=== PATIENT | female | born 2000 | race Caucasian/White ===

== ENCOUNTER 2023-12-02 16:58 | Observation (INO) | payer OTHER, SELFPAY ==
[2023-12-02] VITALS (8 sets, daily range): BP systolic 100–114; BP diastolic 57–65; PULSE 96–102; TEMP 37.1–37.2; BMI 23.4
--- NOTE | 2023-12-02 16:58 | OBADM ---
This patient, Jose Alexandra, admitted to the OB room OB Post 115 for observation. Patient/family oriented to hospital policies and general routines including ID bracelet, bed and alarms, visiting hours, pain management, procedures, bathroom and other care routines, personal items, smoking policy, room service/diet, and visiting hours. Patient/Family are encouraged to report perceived risks to care and to ask questions if they do not understand what they are told or what they should do.
[2023-12-02 17:43] LABS: Add Urine Microscopic? YES; Appearance Urine Clear (Clear); Bacteria Urine Rare /hpf; Bilirubin Urine Negative (Negative); Blood Urine Negative (Negative); Color Urine Yellow (Yellow); Glucose Urine UA Negative (Negative); Ketones Urine 3+ mg/dL (Negative); Leukocyte Esterase Ur Negative LEU/UL (Negative); Nitrate Urine Negative (Negative); Non Pathogenic Casts 0-2; Protein Urine Trace mg/dL (Negative); RBC Urine 0-2 /hpf (0-2); Specific Grav Ur 1.031 (1.001-1.035); Squamous Epithelial Cell Urine Moderate /hpf (Few); WBC Urine 0-5 /hpf (0-3); pH Urine 5.5 (5.0-9.0)
[2023-12-02] MEDS: DEXTROSE 5%/LACTATED RINGERS 1,000 ML 999 ML IV CONT (17:49)
[2023-12-02] MEDS: FAMOTIDINE 20 MG/2 ML VIAL IV PUSH (17:49)
[2023-12-02] MEDS: ONDANSETRON INJ 4 MG/2 ML VIAL IV PUSH (17:49)
--- NOTE | 2023-12-02 18:39 | PC.NURSE ---
This RN doppled heart tones. heart rate ranged from 125-152.
--- NOTE | 2023-12-02 19:32 | PC.NURSE ---
Dr. Fady Vences notified that patient was able to keep the PO fluids down and kept down solids. MD updated on lab results. New orders received to discharge patient.
[2023-12-02] MEDS: ONDANSETRON HCL ODT 4 MG TABLET PO (19:40)
--- NOTE | 2023-12-02 19:57 | PC.NURSE ---
This RN discussed discharge with the patient, patient agrees. RN gave discharge instructions to the patient and patient verbalized understanding. IV discontinued at this time. Patient discharged undelivered and in stable condition.
--- NOTE | 2023-12-16 07:27 | PM.OBTRLD ---
OB - Triage/Final Diagnosis Visit Information Reason for evaluation: threatened labor Comments/Additional reasons for admission: I have assessed the risk for this patient, Jose Alexandra, and determined that she would benefit from observation care. Evaluation Laboratory results: Laboratory Tests 12/02/23 17:35 Urine Color Yellow Urine Appearance Clear Urine pH 5.5 Ur Specific [place] 1.031 Urine Protein Trace Urine Glucose (UA) Negative Urine Ketones 3+ H Ur Blood (Man) Negative Urine Nitrate Negative Urine Bilirubin Negative Urine Urobilinogen 1.0 Leukocyte Esterase Rfl Negative Urine RBC 0-2 Urine WBC 0-5 Ur Squamous Epith Cells Moderate Urine Bacteria Rare Urine Casts 0-2
== END 2023-12-02 20:05 | disposition home or self-care (01) ==
PROVIDERS: Admitting Provider Obstetrics & Gynecology; Visit Provider Obstetrics & Gynecology
DX: O47.02 False labor before 37 completed weeks of gestation, second trimester (principal); Z3A.21 21 weeks gestation of pregnancy
CPT/HCPCS: 81001; 96374; 96375; A9270; G0378; G0379; J2405; J7121

== ENCOUNTER 2023-12-04 08:20 | Outpatient (CLI) | payer OTHER, SELFPAY ==
[2023-12-04 08:59] LABS: OBXCEM ROM Plus Negative (Negative)
--- NOTE | 2023-12-04 09:10 | PC.NURSE ---
Dr. Fady Vences was also informed pt had 1 contraction during the 25 mins the toco transducer was on.
--- NOTE | 2023-12-04 09:10 | PC.NURSE ---
Dr. Fady Vences returned page and informed of this 22 wk pt's c/o leakage of fluid at 0720 this am. ROM plus was negative. No leakage of fluid since. FHT's 136. Pt was c/o back pain and cramping Friday when she was here for Nausea, vomiting, and diarrhea and has felt like she has been feeling movement in her vagina since Friday evening. Pt states she has a low lying placenta but isn't on pelvic rest. OK to do SVE and discharge to home if cervix is closed.
--- NOTE | 2023-12-04 09:16 | PC.NURSE ---
SVE is closed, thick, and firm.
== END 2023-12-04 09:21 | disposition home or self-care (01) ==
LOC: ANHOBOP 08:26 → ANHOBPP 08:27
PROVIDERS: Visit Provider Obstetrics & Gynecology
DX: O42.90 Premature rupture of membranes, unspecified as to length of time between rupture and onset of labor, unspecified weeks of gestation (principal); Z3A.00 Weeks of gestation of pregnancy not specified
CPT/HCPCS: 84112; 99199

== ENCOUNTER 2024-01-28 21:51 | Observation (INO) | payer OTHER, SELFPAY ==
[2024-01-28] VITALS (26 sets, daily range): BP systolic 113–123; BP diastolic 57–74; PULSE 84–117; TEMP 37; O2SAT 99–100
[2024-01-28 22:37] LABS: Add Urine Microscopic? YES; Appearance Urine Cloudy (Clear); Bacteria Urine None Seen /hpf; Bilirubin Urine Negative (Negative); Blood Urine Negative (Negative); Color Urine Yellow (Yellow); Glucose Urine UA Trace mg/dL (Negative); Ketones Urine Negative (Negative); Leukocyte Esterase Ur Negative LEU/UL (Negative); Nitrate Urine Negative (Negative); Non Pathogenic Casts 0-2; Protein Urine Negative (Negative); RBC Urine 0-2 /hpf (0-2); Specific Grav Ur 1.006 (1.001-1.035); Squamous Epithelial Cell Urine None Seen /hpf (Few); Urobilinogen Urine 0.2 mg/dL (<2.0); WBC Urine 0-5 /hpf (0-3); pH Urine 6.5 (5.0-9.0)
[2024-01-28 23:32] LABS: Fetal Fibronectin Negative
[2024-01-29] VITALS (34 sets, daily range): BP systolic 97–115; BP diastolic 49–63; PULSE 73–109; O2SAT 77–100
[2024-01-29] MEDS: NIFEdipine 10 MG CAPSULE PO (00:09)
[2024-01-29] MEDS: LACTATED RINGERS 1,000 ML 999 ML IV CONT (00:28)
--- NOTE | 2024-01-29 02:48 | P.PNOB_ITS ---
OB - Triage/Final Diagnosis Visit Information Date of evaluation: 01/29/24 Reason for evaluation: threatened labor Comments/Additional reasons for admission: I have assessed the risk for this patient, Jose Alexandra, and determined that she would benefit from observation care. Evaluation Laboratory results: Laboratory Tests 01/28/24 01/28/24 22:23 22:39 Urine Color Yellow Urine Appearance Cloudy H Urine pH 6.5 Ur Specific [place] 1.006 Urine Protein Negative Urine Glucose (UA) Trace H Urine Ketones Negative Ur Blood (Man) Negative Urine Nitrate Negative Urine Bilirubin Negative Urine Urobilinogen 0.2 Leukocyte Esterase Rfl Negative Urine RBC 0-2 Urine WBC 0-5 Ur Squamous Epith Cells None seen Urine Bacteria None seen Urine Casts 0-2 Fibronectin Negative Vital signs: Vital Signs - 24 hr 01/28/24 22:12 01/28/24 22:13 01/28/24 22:17 Pulse Rate Blood Pressure Pulse Oximetry 100 100 Oxygen Delivery Room Air 01/28/24 22:19 01/28/24 22:22 01/28/24 22:27 Pulse Rate 114 H Blood Pressure 121/74 Pulse Oximetry 99 99 Oxygen Delivery 01/28/24 22:31 01/28/24 22:32 01/28/24 22:37 Pulse Rate 106 H Blood Pressure 123/70 Pulse Oximetry 100 100 Oxygen Delivery 01/28/24 22:42 01/28/24 22:47 01/28/24 22:52 Pulse Rate Blood Pressure Pulse Oximetry 100 100 100 Oxygen Delivery 01/28/24 22:57 01/28/24 23:01 01/28/24 23:02 Pulse Rate 99 Blood Pressure 113/65 Pulse Oximetry 100 100 Oxygen Delivery 01/28/24 23:07 01/28/24 23:12 01/28/24 23:17 Pulse Rate Blood Pressure Pulse Oximetry 100 100 100 Oxygen Delivery 01/28/24 23:22 01/28/24 23:27 01/28/24 23:31 Pulse Rate 99 Blood Pressure 117/57 L Pulse Oximetry 100 100 Oxygen Delivery 01/28/24 23:32 01/28/24 23:37 01/28/24 23:42 Pulse Rate Blood Pressure Pulse Oximetry 100 100 100 Oxygen Delivery 01/28/24 23:47 01/28/24 23:52 01/28/24 23:57 Pulse Rate Blood Pressure Pulse Oximetry 100 100 100 Oxygen Delivery 01/29/24 00:01 01/29/24 00:02 01/29/24 00:08 Pulse Rate 87 Blood Pressure 115/63 Pulse Oximetry 100 100 Oxygen Delivery 01/29/24 00:13 01/29/24 00:23 01/29/24 00:28 Pulse Rate Blood Pressure Pulse Oximetry 77 L 99 100 Oxygen Delivery 01/29/24 00:33 01/29/24 00:38 01/29/24 00:43 Pulse Rate Blood Pressure Pulse Oximetry 99 100 100 Oxygen Delivery 01/29/24 00:48 01/29/24 00:53 01/29/24 00:58 Pulse Rate Blood Pressure Pulse Oximetry 100 99 100 Oxygen Delivery 01/29/24 01:01 01/29/24 01:03 01/29/24 01:08 Pulse Rate 86 Blood Pressure 97/52 L Pulse Oximetry 98 100 Oxygen Delivery 01/29/24 01:13 01/29/24 01:18 01/29/24 01:23 Pulse Rate Blood Pressure Pulse Oximetry 99 99 99 Oxygen Delivery 01/29/24 01:28 01/29/24 01:33 01/29/24 01:38 Pulse Rate Blood Pressure Pulse Oximetry 99 99 99 Oxygen Delivery 01/29/24 01:43 01/29/24 01:48 01/29/24 01:53 Pulse Rate Blood Pressure Pulse Oximetry 99 99 99 Oxygen Delivery 01/29/24 01:58 01/29/24 02:01 01/29/24 02:03 Pulse Rate 89 Blood Pressure 98/49 L Pulse Oximetry 100 100 Oxygen Delivery 01/29/24 02:05 01/29/24 02:10 01/29/24 02:15 Pulse Rate Blood Pressure Pulse Oximetry 100 100 100 Oxygen Delivery 01/29/24 02:20 01/29/24 02:21 01/29/24 02:26 Pulse Rate Blood Pressure Pulse Oximetry 100 100 100 Oxygen Delivery 01/29/24 02:29 01/29/24 02:29 Pulse Rate Blood Pressure Pulse Oximetry 100 98 Oxygen Delivery
--- NOTE | 2024-01-29 03:20 | PC.NURSE ---
Pt discharged with instructions to keep next scheduled appointment and when to return to the unit, pt verbalizes understanding.
== END 2024-01-29 03:20 | disposition home or self-care (01) ==
PROVIDERS: Admitting Provider Obstetrics & Gynecology; Visit Provider Obstetrics & Gynecology
DX: O47.03 False labor before 37 completed weeks of gestation, third trimester (principal); Z3A.30 30 weeks gestation of pregnancy
CPT/HCPCS: 81001; 82731; 96360; 96361; 96372; A9270; G0378; G0379; J7120

== ENCOUNTER 2024-03-06 23:50 | Inpatient (IN) | payer OTHER, SELFPAY ==
--- OUTSIDE RECORDS SUMMARY | 2024-03-06 23:56 | XMS_ITS | Clinical Summary ---
Author Organization [facility] Address [address] [place] [address] Phone Care Team Providers Care Die Attaching Machine Tender Name Role Phone Parag Gold MD Primary Care Provider Allergies No known active allergies Medications No known medications Active Problems No known active problems Social History Tobacco Use Types Packs/Day Years Used Date Smoking Tobacco: Never Smokeless Tobacco: Never Tobacco Cessation:Counseling Given: Not Answered Alcohol Use Standard Drinks/Week Comments Not Currently 0 (1 standard drink = 0.6 oz pur e alcohol) Comments No Sex and Gender Information Value Date Recorded Sex Assigned at Not on file Legal Sex Female 8:56 PM CDT Gender Identity Not on file Sexual Orientation Not on file Last Filed Vital Signs Vital Sign Reading Time Taken Comments Blood Pressure 114/62 07/26/2022 8:40 AM CDT Pulse 83 07/26/2022 8:40 AM CDT Temperature 36.8 ??C (98.2 ??F) 07/26/2022 8:40 AM CD T Respiratory Rate 16 07/26/2022 8:40 AM CDT Oxygen Saturation 100% 07/26/2022 8:40 AM CDT Inhaled Oxygen Concentration - - Weight 47.6 kg (105 lb) 05/13/2020 10:15 AM CDT Height - - Body Mass Index - - Plan of Treatment Health Maintenance Due Date Last Done Comments Hepatitis C Virus (HCV) Screening 2002 Hepatitis B Immunization (3 of 3 - 3-dose series) 2002 2002, 2002 Human Papillomavirus (HPV) Immunization (1 - 3-dose series) 2017 Meningococcal B Immunization (1 of 2 - Standard) 2018 Pap Smear 05/10/2023 Influenza Immunization (#1) 10/12/202301/10, 11/25/2019, 11/23/2018 SARS-COV-2 Immunization ( season) 2023 Respiratory Syncytial Virus (RSV) Immunization (Adult) (1 - 1-dose 75+ series) 2077 Pneumococcal Immunization Combined Aged Out 2002, 2002 No longer eligible based on patient's age to complete this topic Polio (IPV) Immunization Discontinued 003, 2002 Meningococcal Immunization (ACWY) Completed 11/25/2019 DTaP/Tdap/Td Immunization Discontinued 2021, 2002, 2002 TdaP Immunization Completed 01/20/2022 Rotavirus Immunization Aged Out No lo nger eligible based on patient's age to complete this topic Insurance MEDICAID [place] Care Teams Die Attaching Machine Tender Relationship Specialty Start Date End Date Parag Gold MD [address] [place] [address] PCP - General Pediatrics 12/31/19
--- OUTSIDE RECORDS SUMMARY | 2024-03-06 23:56 | XMS_ITS | Clinical Summary ---
Author Organization [facility] [employer] Address [address] [email or web address] [address] Phone Care Team Providers Care Vice Principal Name Role Phone Parag Gold MD Primary Care Provider [phone] Allergies No known active allergies Medications albuterol (PROVENTIL,PATEL MARY) 0.4 mg/mL syrupIndications :Bronchospastic Pulmonary Disease Take 7.5 mL (3 mg total) by mouth 3 (three) times a day 675 mL 11/23/2018 Active ferrous sulfate 325 mg (65 mg of elemental iron) tablet Take 1 tablet by mouth 2 (two) times a day 11/15/2021 Active vit-iron fum-folic ( Vitamin) 27 mg iron- 800 mcg tablet Take 1 tablet by mouth daily 07/04/2021 Active ibuprofen (ADVIL,MOTRIN) 200 mg tab/capIndicatio ns:Cramps Take 2 tabs orally every 4 hours as needed for pain. 01/19/2022 Active acetaminophen (TYLENOL) 500 mg tablet Take one tab orally every 4 hours as needed for pain. 01/19/2022 Active Active Problems Problem Noted Date Diagnosed Date 37 weeks gestation of 01/18/2022 Impetigo 08/19/2019 Pneumonia due to infectious organism 11/30/2018 Viral upper respiratory tract infection 11/24/19 19 Bronchospasm 11/23/2018 Frequency of urination and polyuria 01/10/2017 Slow transit constipation 01/10/2017 History of self-harm 09/13/2016 Overview (09/13/2016): 09/25-01/25 [place] prozac 10mg bullying she began cutting, wrote note about plans to kill self with overdosing on pills - counseling. 8-17 done with counseling doing well stopped prozac Reactive depression 09/13/2016 Overview (09/13/2016): [place] Prozac, counseling bullying 09-13-16 done with counseling doing well stopped prozac Encounters for administrative purposes 5 Overview (05/23/2016): Sports physical Medical examinations/reports status 06/17/2012 Overview (05/23/2016): Health care maintenance Acute streptococcal pharyngitis 06/17/2012 Overview (05/23/2016): Strep pharyngitis Immunizations Name Administration Dates Next Due DTaP 09/04/2007,2002 DTaP / HiB / IPV 08/10/2003,2002, 3 HPV, Quadrivalent 11/11/2013,09/08/2013 HPV9 09/13/2016 Hep B, Adolescent or Pediatric 2002,2002,2002 Hib (PRP-OMP) 2002 IPV 09/04/2007 Influenza, Quadrivalent, Spl it, Preservative Free, Intramuscular 01/20/2022,11/25/2019,11/23/2018 Influenza, Split 11/26/2012 Influenza, Trivalent, IM (MDV) 11/29/2013,2011 MMR 09/04/2007,05/11/2003 Meningococcal Conjugate (Menveo) 11/25/2019 Meningococcal MCV4P (Menactra) 09/08/2013 Pneumococcal Conjugate PCV 13 11/10/2003 ,2002,2002,07/16 Tdap 01/20/2022,09/08/2013 Varicella 09/04/2007,05/11/2003 Surgical History Surgery Date Site/Laterality Comments TONSILLECTOMY Medical History Medical History Date Comments Hx Other Medical 2011 Tonsillectomy & adenoidectomy Hx Other Medical Depression Social History Tobacco Use Types Packs/Day Years Used Date Smoking Tobacco: Former Vaping Q uit: 05/11/2021 Smokeless Tobacco: Never Tobacco Cessation:Counseling Given: Not Answered Alcohol Use Standard Drinks/Week Comments Never 0 (1 standard drink = 0.6 oz pur e alcohol) Social Connection and Isolation Panel [NHANES] A nswer Date Recorded In a typical week, how many times do you talk on the phone with family, friends, or neighbors? Three times a week 01/19/20 How often do you get togethe r with friends or relatives? Three times a week 01/18/2022 How often do you attend chur ch or advent services? Never 01/18/2022 Do you belong to any clubs o r organizations such as mosque groups, unions, fraternal or athletic groups, or school groups? No 01/18/2022 How often do you attend meet ings of the clubs or organizations you belong to? Never 01/18/2022 Are you , , di vorced, , never , or living with a partner? Living with partner 01/18/2022 AUDIT-C Answer Date Recorded Q1: How often do you have a drink containing alcohol? Never 01/18/2022 Q2: How many drinks containi ng alcohol do you have on a typical day when you are drinking? Patient does not drink Q3: How often do you have si x or more drinks on one occasion? Never 01/18/2022 Overall Financial Resource Strain (CARDIA) Answe r Date Recorded How hard is it for you to pa y for the very basics like food, housing, medical care, and heating? Not hard at all 01/18/2022 PHQ-2 Answer Date Recorded PHQ-2 Total Score (If total score is 3 or more points, staff should administer the PHQ-9) 0 01/18/2022 [facility] - Occupational Stress Questionnaire Answer Date Recorded Do you feel stress - tense, restless, nervous, or anxious, or unable to sleep at night because your mind is troubled all the time - these days? Not at all 01/18/2022 Exercise Vital Sign Answer Date Recorde d On average, how many days pe r week do you engage in moderate to strenuous exercise (like a brisk walk)? 2 days 01/18/2022 On average, how many minutes do you engage in exercise at this level? 20 min 01/18/2022 Hunger Vital Sign Answer Date Recorded Within the past 12 months, y ou worried that your food would run out before you got the money to buy more. Never true 01/19/20 22 Within the past 12 months, t he food you bought just didn't last and you didn't have money to get more. Never true 01/18/2022 PRAPARE - Transportation Answer Date Re corded In the past 12 months, has l ack of transportation kept you from medical appointments or from getting medications? No 10/2021 In the past 12 months, has l ack of transportation kept you from meetings, work, or from getting things needed for daily living? No 01/18/2022 Housing Stability Vital Sign Answer Danielito e Recorded In the last 12 months, was t here a time when you were not able to pay the mortgage or rent on time? No 01/18/2022 Number of Places Lived in the Last Year Not on f ile 01/18/2022 In the last 12 months, was t here a time when you did not have a steady place to sleep or slept in a mcfp (including now)? 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 on file Not on file Not on file Obstetrics History Para Term AB IAB SAB Ectopic Multiple Livin g Live Births 1 1 1 0 0 0 0 0 0 1 1 Date Outcome GA Total Labor Labor/2nd/3rd Weight Sex Type Anes PTL Edna A1 A5 Name Clin 022 Term 37w 1d 1h 39m 0h 45m/0h 43m/0h 11m 2.728 kg (6 lb 0.2 oz) F Vag-S pont Epidu ral,L ocal N Living 8 9 FEDRI CK,GI RLMAC Trace Tineo MD Delivery Location:This Facil ity ([facility]) Last Filed Vital Signs Vital Sign Reading Time Taken Comments Blood Pressure 129/84 01/20/2022 12:00 AM [employer]ICE OFFICER Pulse 68 01/20/2022 12:00 AM [employer]ICE OFFICER Temperature 36.5 ??C (97.7 ??F) 01/20/2022 12:[address] Respiratory Rate 18 01/20/2022 12:00 AM [employer]ICE OFFICER Oxygen Saturation 100% 01/20/2022 12:00 AM [employer]ICE OFFICER Inhaled Oxygen Concentration - - Weight 68.5 kg (151 lb) 01/07/2022 10:18 AM [employer] POLICE OFFICER Height 167.6 cm (5' 6 ) 01/07/2022 10:18 AM [employer] POLICE OFFICER Body Mass Index 24.37 01/07/2022 10:18 AM [employer]ICE OFFICER Plan of Treatment Health Maintenance Due Date Last Done Comments Cervical Cancer Screening 2002 Meningococcal B Vaccine (1 o f 2 - Patient Seeks Protection) 2018 Regular Well Visit/Exam 18-64 2020 Chlamydia and Gonorrhea (GC/ CT) Screening 09/05/2020 09/06/2019, 04/07/2019 Depression Screening 01/07/2023 01/07/2022, 01/07/2022, 01/01/2022, Additional history exists Influenza Vaccine (#1) 2023 , 11/25/2019, 11/23/2018, Additional history exists DTaP/Tdap/Td Vaccine (8 - Td or Tdap) 01/21/2032 01/20/2022, 09/08/2013, 09/04/2007, Additional history exists Pneumococcal vaccine <65 Completed 004, 2002, 2002, Additional history exists Varicella Vaccines Completed 09/04/2007, 05/11/2003 HPV Vaccines Completed 09/13/2016, 03/2013, 09/08/2013 Meningococcal Vaccine Completed 11/25/2019, 014 Hepatitis C Screening Completed 07/31/2021 Procedures Procedure Name Priority Date/Time Associated Diagnosis Comments HEPATITIS C ANTIBODY Routine 07/31/2021 N. GONORRHOEAE/C. TRACHOMATIS AMPLIFICATION Routine 09/06/2019 2:45 PM CDT Irregular bleeding Screening examination for venereal disease from Last 3 Months or Most Recently Relevant to Health Maintenance Results * Hepatitis C antibody (07/31/2021) SCRIBED HCV ab neg Blood us Trace Villalta MD LAB MICROBIOLOGY - GENERAL OR DERABLES Final Result * N. gonorrhoeae/C. trachomatis Amplification Urine (09/06/2019 2:45 PM CDT) C. trachomatis Not detected Not detected ADRIAN AMADOR N. gonorrhoeae Not detected Not detected ADRIAN AMADOR Comment: Testing performed by the [facility]. This assay detects Chlamydia trachomatis and Neisseria gonorrhoeae by nucleic acid amplification testing (NAAT). This test is approved by the [facility] Food and Drug Administration and the performance characteristics have been verified by the laboratory. The performance characteristics of this test have not been evaluated in women or individuals less than 16 years of age. Urine (None) 09/06/2019 2:45 PM CDT 09/06/2019 7:37 PM CDT Christy Leon NP LAB MICROBIOLOGY - GENERA L ORDERABLES Final Result ADRIAN [id number] [place] [address] from Last 3 Months or Most Recently Relevant to Health Maintenance Insurance [facility] CHOICE PLUS [facility] [employer] OPEN ACCESS Advance Directives For more information, please contact: [phone] * Full Code (Latest Code Status on File) Date Activated Date Inactivated Comments 01/18/2022 3:10 PM 01/20/2022 5:41 PM * Full Code Date Activated Date Inactivated Comments 01/18/2022 1:25 AM 01/18/2022 3:10 PM Full CPR in case of cardiopulmonary arrest Care Teams Vice Principal Relationship Specialty Start Date End Date Parag Gold MD [address] [place] [id number] PCP - General 06/17/12
--- OUTSIDE RECORDS SUMMARY | 2024-03-06 23:56 | XMS_ITS | Encounter Summary ---
Author Organization [facility] Address [address] [place] [address] Phone Care Team Providers Care Office Service Coordinator Name Role Phone Parag Gold MD Primary Care Provider [phone] Encounter Details Date Type Department Care Team (Late st Contact Info) Description 01/10/2017 Orders Only [facility] [address] [place] [address] Parag Gold MD [address] [address] Polyuria (Primary Dx) Social History Tobacco Use Types Packs/Day Years Used Date Smoking Tobacco: Never Assessed Comments Unknown Sex and Gender Information Value Date Recorded Sex Assigned at Not on file Legal Sex Female 1:48 AM LEAD BURNER APPRENTICE Gender Identity Not on file Sexual Orientation Not on file documented as of this encounter Plan of Treatment Not on file documented as of this encounter Results * XR Kub (01/10/2017 1:33 PM LEAD BURNER APPRENTICE) Anatomical Region Laterality Modality Body, Abdomen N/A Computed Radiogr aphy Impressions 01/14/2017 2:42 PM LEAD BURNER APPRENTICE 1. ??No radiographic evidence of abdominal disease. 2. ??Moderate fecal material of the colon and rectum noted. ?? Please correlate clinically for fecal impaction. ?? Narrative 01/14/2017 2:42 PM LEAD BURNER APPRENTICE DIGITAL KUB: The examination of the abdomen in the supine position reveals a normal bowel gas pattern without radiographic evidence of the mechanical bowel obstructions. ??There is no evidence of abnormal calcification. ??The liver and spleen are not enlarged. ??No air is appreciated in the biliary tree. ?? us Parag Gold MD IMG XR PROCEDURES Final Resu lt documented in this encounter Visit Diagnoses Diagnosis Polyuria- Primary Polyuria documented in this encounter Care Teams Office Service Coordinator Relationship Specialty Start Date End Date Parag Gold MD [address] [place] [id number] PCP - General 06/17/12 documented as of this encounter
--- OUTSIDE RECORDS SUMMARY | 2024-03-06 23:56 | XMS_ITS | Referral Summary ---
Author Organization [facility] [address] [employer] Address [address] [place] [address] Phone Care Team Providers Care Outbound Supervisor Name Role Phone Parag Gold MD Primary Care Provider Allergies No known active allergies Medications albuterol [...] History of self-harm 09/13/2016 Overview (09/13/2016): 09/25-01/25 [place] prozac 10mg bullying she began cutting, wrote note about plans to kill self with overdosing on pills - counseling. 09-13-17 done with counseling doing well stopped prozac Reactive depression 09/13/2016 Overview (09/13/2016): [place] Prozac, counseling bullying 09-13-16 done with counseling [...] 13 11/10/2003 ,2002,2002,07/16 Tdap 01/20/2022,09/08/2013 Varicella 09/04/2007,05/11/2003 Social History Tobacco Use Types Packs/Day Years [...] often do you attend chur ch or hindu services? Never 01/18/2022 Do you belong to any clubs o r organizations such as bahai groups, unions, fraternal or athletic groups, or [...] staff should administer the PHQ-9) 0 01/18/2022 [facility] [place] of Occupat ional Health - Occupational Stress [...] place to sleep or slept in a fci (including now)? 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 Not on file Not on file Last Filed Vital Signs Vital Sign Reading Time Taken Comments Blood Pressure 129/84 01/20/2022 12:00 AM REGULATORY ASSOCIATE Pulse 68 01/20/2022 12:00 AM REGULATORY ASSOCIATE Temperature 36.5 ??C (97.7 ??F) 01/20/2022 12:[address] Respiratory Rate 18 01/20/2022 12:00 AM REGULATORY ASSOCIATE Oxygen Saturation 100% 01/20/2022 12:00 AM REGULATORY ASSOCIATE Inhaled Oxygen Concentration - - Weight 68.5 kg (151 lb) 01/07/2022 10:18 AM REGULATORY ASSOCIATE Height 167.6 cm (5' 6 ) 01/07/2022 10:18 AM REGULATORY ASSOCIATE Body Mass Index 24.37 01/07/2022 10:18 AM REGULATORY ASSOCIATE Plan of Treatment Not on file Procedures Procedure Name Priority Date/Time Associated Diagnosis Comments HEPATITIS C ANTIBODY Routine 07/31/2021 N. GONORRHOEAE/C. TRACHOMATIS AMPLIFICATION Routine 09/06/2019 2:45 PM CDT Irregular bleeding Screening examination for venereal disease from Last 3 Months or Most Recently Relevant to Health Maintenance Results * Hepatitis C antibody (07/31/2021) SCRIBED HCV ab neg Blood Trace Villalta MD LAB MICROBIOLOGY - GENERAL OR DERABLES Final Result * N. gonorrhoeae/C. trachomatis Amplification Urine (09/06/2019 2:45 PM CDT) C. trachomatis Not detected Not detected ADRIAN AMADOR N. gonorrhoeae Not detected Not detected ADRIAN AMADOR Comment: Testing performed by the [facility]. This assay detects Chlamydia trachomatis and Neisseria gonorrhoeae by nucleic acid amplification testing (NAAT). This test is approved by the [place] Food and Drug Administration and the performance characteristics have been verified by the laboratory. The performance characteristics of this test have not been evaluated in women or individuals less than 16 years of age. Urine (None) 09/06/2019 2:45 PM CDT 09/06/2019 7:37 PM CDT Christy Leon NP LAB MICROBIOLOGY - GENERA L ORDERABLES Final Result ADRIAN AMADOR [id number] Department [place] [address] from Last 3 Months or Most Recently Relevant to Health Maintenance Insurance [facility] [employer] OPEN ACCESS Advance Directives For more information, please contact: [phone] * Full Code (Latest Code Status on File) Date Activated Date Inactivated Comments 01/18/2022 3:10 PM 01/20/2022 5:41 PM * Full Code Date Activated Date Inactivated Comments 01/18/2022 1:25 AM 01/18/2022 3:10 PM Full CPR in case of cardiopulmonary arrest Care Teams Outbound Supervisor Relationship Specialty Start Date End Date Parag Gold MD [address] [place] [address] PCP - General 06/17/12
--- OUTSIDE RECORDS SUMMARY | 2024-03-06 23:56 | XMS_ITS | Encounter Summary ---
Author Organization [facility] Address [address] [place] [address] Care Team Providers Care Chaser Tar Name Role Phone Parag Gold MD Primary Care Provider Encounter Details Date Type Department Care Team (Late st Contact Info) Description 01/01/2022 Documentation [facility] [address] [place] [id number] Alisson Gu RN Social History Tobacco Use Types Packs/Day Years Used Date Smoking Tobacco: Former Vaping Q uit: 05/11/2021 Smokeless Tobacco: Never Alcohol Use Standard Drinks/Week Comments Never 0 (1 standard drink = 0.6 oz pur e alcohol) Social Connection and Isolation Panel [NHANES] A nswer Date Recorded In a typical week, how many times do you talk on the phone with family, friends, or neighbors? Three times a week 01/02/20 How often do you get togethe r with friends or relatives? Three times a week 01/01/2022 How often do you attend chur ch or roman catholic services? Never 01/01/2022 Do you belong to any clubs o r organizations such as worship groups, unions, fraternal or athletic groups, or school groups? No 01/01/2022 How often do you attend meet ings of the clubs or organizations you belong to? Never 01/01/2022 Are you , , di vorced, , never , or living with a partner? Living with partner 01/01/2022 AUDIT-C Answer Date Recorded Q1: How often do you have a drink containing alcohol? Never 01/01/2022 Q2: How many drinks containi ng alcohol do you have on a typical day when you are drinking? Patient does not drink Q3: How often do you have si x or more drinks on one occasion? Never 01/01/2022 Overall Financial Resource Strain (CARDIA) Answe r Date Recorded How hard is it for you to pa y for the very basics like food, housing, medical care, and heating? Not hard at all 01/01/2022 PHQ-2 Answer Date Recorded PHQ-2 Total Score (If total score is 3 or more points, staff should administer the PHQ-9) 0 01/01/2022 [facility] of Occupat ional Health - Occupational Stress Questionnaire Answer Date Recorded Do you feel stress - tense, restless, nervous, or anxious, or unable to sleep at night because your mind is troubled all the time - these days? Not at all 01/01/2022 Exercise Vital Sign Answer Date Recorde d On average, how many days pe r week do you engage in moderate to strenuous exercise (like a brisk walk)? 2 days 01/01/2022 On average, how many minutes do you engage in exercise at this level? 20 min 01/01/2022 Hunger Vital Sign Answer Date Recorded Within the past 12 months, y ou worried that your food would run out before you got the money to buy more. Never true 01/02/20 Within the past 12 months, t he food you bought just didn't last and you didn't have money to get more. Never true 01/01/2022 PRAPARE - Transportation Answer Date Re corded In the past 12 months, has l ack of transportation kept you from medical appointments or from getting medications? No 12/12 In the past 12 months, has l ack of transportation kept you from meetings, work, or from getting things needed for daily living? No 01/01/2022 Housing Stability Vital Sign Answer Danielito e Recorded In the last 12 months, was t here a time when you were not able to pay the mortgage or rent on time? No 01/01/2022 Number of Places Lived in the Last Year Not on f ile 01/01/2022 In the last 12 months, was t here a time when you did not have a steady place to sleep or slept in a [facility] (including now)? 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
[2024-03-06 23:58] VITALS: BP 132/79; PULSE 101
[2024-03-07] VITALS (318 sets, daily range): BP systolic 78–137; BP diastolic 34–99; PULSE 39–136; TEMP 36.1–36.6; O2SAT 78–100; BMI 26.1; BMI 27.8
--- NOTE | 2024-03-07 00:15 | OBADM ---
This patient, Jose Alexandra, admitted to the OB room Labor/Delivery/Recovery 105 for observation. Patient/family oriented to hospital policies and general routines including ID bracelet, bed and alarms, visiting hours, pain management, procedures, bathroom and other care routines, personal items, smoking policy, room service/diet, and visiting hours. Patient/Family are encouraged to report perceived risks to care and to ask questions if they do not understand what they are told or what they should do.
[2024-03-07 00:20] LABS: Add Urine Microscopic? YES; Appearance Urine Clear (Clear); Bacteria Urine None Seen /hpf; Bilirubin Urine Negative (Negative); Blood Urine Negative (Negative); Color Urine Yellow (Yellow); Glucose Urine UA Trace mg/dL (Negative); Ketones Urine Negative (Negative); Leukocyte Esterase Ur Trace LEU/UL (Negative); Nitrate Urine Negative (Negative); Non Pathogenic Casts 0-2; Protein Urine Negative (Negative); RBC Urine 0-2 /hpf (0-2); Specific Grav Ur 1.005 (1.001-1.035); Squamous Epithelial Cell Urine None Seen /hpf (Few); Urobilinogen Urine 0.2 mg/dL (<2.0); WBC Urine 0-5 /hpf (0-3)
--- NOTE | 2024-03-07 00:40 | PC.NURSE ---
Call recieved back from Dr. Fady Vences. Reported pt c/o ctx starting at 1500. SVE /-2, ctx, fhr and vitals. Order to start IV and bolus 1 liter LR. Give 0.25 of terb. pt can have up to 3 doses. If ctx continue or pt makes change or terb dose not work. Call Dr. Alaniz
[2024-03-07] MEDS: LACTATED RINGERS 1,000 ML 999 ML IV CONT ×3 (01:07→15:22)
[2024-03-07] MEDS: NIFEdipine 10 MG CAPSULE PO ×2 (01:08→01:50)
[2024-03-07 04:33] LABS: Basophils Percent Auto 0.3 % (0.2-1.2); Eosinophils Absolute Auto 0.1 K/mm3 (0-0.3); Eosinophils Percent Auto 0.7 % (0-4.4); Hematocrit 28.4 % (37.0-47.0); Hemoglobin 8.9 g/dL (12.0-15.0); Immature Granulocyte Absolute 0.06 K/mm3 (0.00-0.031); Immature Granulocyte Percent A 0.5 % (0-0.5); Lymphocytes Absolute Auto 2.52 K/mm3 (0.9-3.2); Lymphocytes Percent Auto 21.1 % (18.3-44.2); Mean Corpuscular HGB Conc 31.3 g/dl (32-36); Mean Corpuscular Hemoglobin 25.7 pg (26-34); Mean Corpuscular Volume 82.1 fl (80-100); Mean Platelet Volume 9.7 fl (7.4-10.4); Monocytes Absolute Auto 0.7 K/mm3 (0.1-0.6); Monocytes Percent Auto 5.7 % (2.6-8.5); Neutrophils Absolute Auto 8.6 K/mm3 (1.3-6.7); Neutrophils Percent Auto 71.7 % (45.5-73.1); Platelet Count Result 281 k/mm3 (150-375); Red Blood Count 3.46 M/mm3 (4.2-5.4); Red Cell Distribution Width 13.9 % (11.5-14.5)
[2024-03-07] MEDS: MAGNESIUM SULF 4 GM/WATER100ML 4 GM/100 ML BAG IVPB (04:36)
[2024-03-07] MEDS: BETAMETHASONE SOD PHOS/ACETATE 30 MG/5 ML VIAL 12 MG IM ×2 (04:42→16:58)
[2024-03-07] MEDS: LACTATED RINGERS 1,000 ML 125 ML IV CONT (04:43)
--- NOTE | 2024-03-07 05:00 | LDADM ---
This patient, Jose Alexandra, was admitted to Labor/Delivery/Recovery 105 on 03/07/24 at 04:20. Plans for labor, pain management and were discussed with patient. Patient/family oriented to hospital policies and general routines including ID bracelet, bed and alarms, visiting hours, pain management, procedures, bathroom and other care routines, personal items, smoking policy, room service/diet and guest tray routines, infant security routines, and visiting hours. Patient/Family are encouraged to report perceived risks to care and to ask questions if they do not understand what they are told or what they should do. See OBIX for further documentation.
[2024-03-07 05:05] LABS: Rapid Plasma Reagin Non-Reactive (NonReactive)
[2024-03-07] MEDS: MAGNESIUM SULF 20GM/WATER500ML 500 ML 50 MG IV CONT (05:08)
[2024-03-07] MEDS: fentaNYL CITRATE INJ (*CRX) 100 MCG/2 ML VIAL 50 MCG IV PUSH ×2 (05:25→09:49)
[2024-03-07 05:27] LABS: HIV 1/2 Ab P24 Ag Result Negative (Negative)
[2024-03-07] MEDS: AMPICILLIN 2 GM/NS 100 ML 2 GM/100 ML BAG IVPB (08:24)
[2024-03-07] MEDS: AMPICILLIN 1 GM/NS 50 ML 1 GM/50 ML BAG IVPB ×3 (12:23→20:50)
--- NOTE | 2024-03-07 12:40 | PM.IMHP ---
H&P: HPI History of Present Illness Date/Time: 03/07/24 12:40 Chief Complaint: Contractions Narrative: 23 y/o at 35 4/7 weeks with contractions. GBS unknown. First baby born at 36 weeks after PROM. Has used nifedipine off and on for contractions in this . When she presented to L&D, she was given IV fluids and nifedipine, but contractions persisted and her cervix changed from 2 cm to 3 cm. She was given magnesium sulfate IV and betamethasone. Contractions have spaced out a bit, but are still painful. Cervix was checked later and found to be 4.5 cm. We have started ampicillin. She is now asking for an epidural. Review of Systems Review of Systems: All systems reviewed & are unremarkable except as noted in HPI and below PMFSH Social History Social History Smoking status: Former smoker Tobacco type: e-cigarettes/vaping Second hand tobacco smoke exposure: No Substance use: never Do You Feel Safe in your Home?: Yes Lack of Transportation: No Lack of Food: Never True Current Housing: I Have Housing Concerned About Future Housing: No Difficulty Paying Gas/Electric Bills: No Difficulty Paying for Meds: No Currently Unemployed: No Education: High School Diploma/GED Difficulty w/ Childcare or Family Care: No Spiritual care concerns: No Meds Home Medications and Allergies Home Medications ?Medication ?Instructions ?Recorded ?Confirmed ?Type No Home Medications 12/04/23 03/07/24 History Allergies Allergy/AdvReac Type Severity Reaction Status Date / Time No Known Allergies Allergy Verified 03/07/24 00:25 Vital Signs Vital Signs - 24 hr 03/06/24 23:58 03/07/24 00:00 03/07/24 00:15 Temperature Pulse Rate 101 H 121 H 99 Blood Pressure 132/79 121/67 117/75 Pulse Oximetry Oxygen Delivery 03/07/24 00:30 03/07/24 00:45 03/07/24 01:15 Temperature Pulse Rate 111 H 91 80 Blood Pressure 111/73 112/69 106/52 L Pulse Oximetry Oxygen Delivery 03/07/24 01:30 03/07/24 01:45 03/07/24 02:00 Temperature Pulse Rate 106 H 90 90 Blood Pressure 93/34 L 105/50 L 100/64 Pulse Oximetry Oxygen Delivery 03/07/24 02:15 03/07/24 02:30 03/07/24 02:45 Temperature Pulse Rate 98 81 84 Blood Pressure 88/34 L 87/45 L 103/53 L Pulse Oximetry Oxygen Delivery 03/07/24 03:00 03/07/24 03:30 03/07/24 04:00 Temperature Pulse Rate 79 79 79 Blood Pressure 105/51 L 100/51 L 94/42 L Pulse Oximetry Oxygen Delivery 03/07/24 04:31 03/07/24 05:00 03/07/24 05:00 Temperature Pulse Rate 101 H 89 Blood Pressure 100/61 104/64 Pulse Oximetry Oxygen Delivery Room Air 03/07/24 05:00 03/07/24 05:30 03/07/24 06:00 Temperature 36.6 C Pulse Rate 92 83 Blood Pressure 109/81 102/53 L Pulse Oximetry Oxygen Delivery 03/07/24 06:15 03/07/24 06:20 03/07/24 06:25 Temperature Pulse Rate Blood Pressure Pulse Oximetry 100 100 100 Oxygen Delivery 03/07/24 06:30 03/07/24 06:35 03/07/24 06:40 Temperature Pulse Rate 78 Blood Pressure 112/60 Pulse Oximetry 100 99 98 Oxygen Delivery 03/07/24 06:45 03/07/24 06:50 03/07/24 06:55 Temperature Pulse Rate Blood Pressure Pulse Oximetry 99 99 98 Oxygen Delivery 03/07/24 07:00 03/07/24 07:05 03/07/24 07:10 Temperature Pulse Rate 82 Blood Pressure 110/58 L Pulse Oximetry 99 97 100 Oxygen Delivery 03/07/24 07:15 03/07/24 07:20 03/07/24 07:25 Temperature Pulse Rate Blood Pressure Pulse Oximetry 98 97 99 Oxygen Delivery 03/07/24 07:30 03/07/24 07:35 03/07/24 07:39 Temperature 36.3 C L Pulse Rate 77 Blood Pressure 106/59 L Pulse Oximetry 98 99 Oxygen Delivery 03/07/24 07:40 03/07/24 07:45 03/07/24 07:50 Temperature Pulse Rate Blood Pressure Pulse Oximetry 100 100 100 Oxygen Delivery 03/07/24 07:55 03/07/24 08:00 03/07/24 08:05 Temperature Pulse Rate 98 Blood Pressure 121/66 Pulse Oximetry 99 100 100 Oxygen Delivery 03/07/24 08:10 03/07/24 08:12 03/07/24 08:17 Temperature Pulse Rate Blood Pressure Pulse Oximetry 100 100 100 Oxygen Delivery 03/07/24 08:22 03/07/24 08:27 03/07/24 08:29 Temperature Pulse Rate 89 Blood Pressure 131/99 H Pulse Oximetry 100 100 Oxygen Delivery 03/07/24 08:32 03/07/24 08:37 03/07/24 08:42 Temperature Pulse Rate Blood Pressure Pulse Oximetry 99 100 100 Oxygen Delivery 03/07/24 08:47 03/07/24 08:52 03/07/24 08:57 Temperature Pulse Rate Blood Pressure Pulse Oximetry 100 100 100 Oxygen Delivery 03/07/24 09:00 03/07/24 09:06 03/07/24 09:11 Temperature Pulse Rate 83 Blood Pressure 120/74 Pulse Oximetry 100 100 Oxygen Delivery 03/07/24 09:16 03/07/24 09:21 03/07/24 09:26 Temperature Pulse Rate Blood Pressure Pulse Oximetry 100 100 100 Oxygen Delivery 03/07/24 09:30 03/07/24 09:31 03/07/24 09:36 Temperature Pulse Rate 84 Blood Pressure 110/53 L Pulse Oximetry 100 100 Oxygen Delivery 03/07/24 09:41 03/07/24 09:46 03/07/24 09:51 Temperature Pulse Rate Blood Pressure Pulse Oximetry 99 100 100 Oxygen Delivery 03/07/24 09:56 03/07/24 10:00 03/07/24 10:01 Temperature Pulse Rate 101 H Blood Pressure 128/65 Pulse Oximetry 99 99 Oxygen Delivery 03/07/24 10:06 03/07/24 10:11 03/07/24 10:16 Temperature Pulse Rate Blood Pressure Pulse Oximetry 100 99 99 Oxygen Delivery 03/07/24 10:21 03/07/24 10:26 03/07/24 10:30 Temperature Pulse Rate 90 Blood Pressure 112/74 Pulse Oximetry 99 99 Oxygen Delivery 03/07/24 10:31 03/07/24 10:36 03/07/24 10:41 Temperature Pulse Rate Blood Pressure Pulse Oximetry 99 99 99 Oxygen Delivery 03/07/24 10:46 03/07/24 10:51 03/07/24 10:56 Temperature Pulse Rate Blood Pressure Pulse Oximetry 100 99 100 Oxygen Delivery 03/07/24 11:00 03/07/24 11:01 03/07/24 11:06 Temperature Pulse Rate 99 Blood Pressure 112/62 Pulse Oximetry 100 100 Oxygen Delivery 03/07/24 11:11 03/07/24 11:18 03/07/24 11:20 Temperature 36.5 C Pulse Rate Blood Pressure Pulse Oximetry 100 99 Oxygen Delivery 03/07/24 11:23 03/07/24 11:28 03/07/24 11:29 Temperature Pulse Rate 96 Blood Pressure 123/78 Pulse Oximetry 100 100 Oxygen Delivery 03/07/24 11:33 03/07/24 11:38 03/07/24 11:43 Temperature Pulse Rate Blood Pressure Pulse Oximetry 100 100 95 Oxygen Delivery 03/07/24 11:46 03/07/24 11:47 03/07/24 11:52 Temperature Pulse Rate Blood Pressure Pulse Oximetry 98 88 L 100 Oxygen Delivery 03/07/24 11:57 03/07/24 12:00 03/07/24 12:02 Temperature Pulse Rate 93 Blood Pressure 115/66 Pulse Oximetry 100 100 Oxygen Delivery 03/07/24 12:10 03/07/24 12:31 03/07/24 12:38 Temperature Pulse Rate 98 Blood Pressure 124/56 L Pulse Oximetry 100 100 Oxygen Delivery Exam Const: Orientation/consciousness: patient oriented x3 Other: Well-developed, well-nourished female in no acute distress. Neck: Thyroid: thyroid normal Lymphatic: no lymphadenopathy noted (in neck, axilla or inguinal nodes) Resp: Effort & Inspection: normal respiratory effort Auscultation: clear to auscultation bilaterally Cardio: Rate: regular rate Rhythm: regular rhythm Heart sounds: S1 normal heart sound present and S2 normal heart sound present GI: Other: ABD: Soft, nontender, nondistended, gravid. NST reactive. TOCO: contractions every 3-10 min. No guarding or rebound tenderness. No hepatosplenomegaly. : General: Yes no CVA tenderness Other: Cervix 4-5 cm / 80 per RN. Back/Spine/Pelvis: Back: no CVA tenderness Skin: General skin exam: normal color and no rashes or lesions noted Neuro: General: patient oriented x3 Extrem: Other: Extremities: nontender with no edema Psych: Mental Status: mental status grossly normal Affect: normal affect H&P: Results Labs Labs: Short CBC 03/07/24 Range/Units 04:28 WBC 12.0 H (4.5-10.0) K/mm3 Hgb 8.9 L (12.0-15.0) g/dL Hct 28.4 L (37.0-47.0) % Plt Count 281 (150-375) k/mm3 Urine 03/07/24 Range/Units 00:09 Urine Color Yellow (Yellow) Urine Appearance Clear (Clear) Urine pH 6.0 (5.0-9.0) Ur Specific [place] 1.005 (1.001-1.035) Urine Protein Negative (Negative) mg/dL Urine Glucose (UA) Trace H (Negative) mg/dL Assessment and Plan Assessment and plan (1) labor: Code(s): O60.00 - labor without delivery, unspecified trimester Status: Acute Assessment and Plan: A: IUP at 35 4/7 weeks with labor. Had first dose of steroids. Labor has broken through tocolysis. P: Continue ampicillin. Stop magnesium. Anticipate . Will reexamine her cervix after epidural placement.
--- NOTE | 2024-03-07 12:42 | WPDANESEPP ---
Anes - Eval Pre Procedure Procedure: labor epidural Date/Time: 03/07/24 12:42 Preop Diagnosis: labor pain Pre Op Diagnosis: Contractions Patient Data Age: 23 Gender: F Height: 1.57 m Weight: 69.09 kg Last Vital Signs Temp 36.5 C 03/07/24 11:20 Pulse 98 03/07/24 12:31 BP 124/56 L 03/07/24 12:31 Pulse Ox 100 03/07/24 12:38 O2 Del Method Room Air 03/07/24 05:00 Allergies Allergy/AdvReac Type Severity Reaction Status Date / Time No Known Allergies Allergy Verified 03/07/24 00:25 Home Medications ?Medication ?Instructions ?Recorded ?Confirmed ?Type No Home Medications 12/04/23 03/07/24 History Laboratory Tests 03/07/24 03/07/24 00:09 04:28 WBC 12.0 H K/mm3 (4.5-10.0) RBC 3.46 L M/mm3 (4.2-5.4) Hgb 8.9 L g/dL (12.0-15.0) Hct 28.4 L % (37.0-47.0) MCV 82.1 fl (80-100) MCH 25.7 L pg (26-34) MCHC 31.3 L g/dl (32-36) RDW 13.9 % (11.5-14.5) Plt Count 281 k/mm3 (150-375) MPV 9.7 fl (7.4-10.4) Immature Gran % (Auto) 0.5 % (0-0.5) Neut % (Auto) 71.7 % (45.5-73.1) Lymph % (Auto) 21.1 % (18.3-44.2) [place] % (Auto) 5.7 % (2.6-8.5) Eos % (Auto) 0.7 % (0-4.4) Baso % (Auto) 0.3 % (0.2-1.2) Lymph # (Auto) 2.52 K/mm3 (0.9-3.2) [place] # (Auto) 0.7 H K/mm3 (0.1-0.6) Eos # (Auto) 0.1 K/mm3 (0-0.3) Baso # (Auto) 0.0 K/mm3 (0.0-0.1) Abs Immat Gran (auto) 0.06 H K/mm3 (0.00-0.031) Absolute Neuts (auto) 8.6 H K/mm3 (1.3-6.7) Absolute Nucleated RBC 0.000 K/mm3 (0.0-0.012) Nucleated RBC % 0.0 % (0.0-0.2) Urine Color Yellow (Yellow) Urine Appearance Clear (Clear) Urine pH 6.0 (5.0-9.0) Ur Specific [place] 1.005 (1.001-1.035) Urine Protein Negative mg/dL (Negative) Urine Glucose (UA) Trace H mg/dL (Negative) Urine Ketones Negative mg/dL (Negative) Ur Blood (Man) Negative (Negative) Urine Nitrate Negative (Negative) Urine Bilirubin Negative (Negative) Urine Urobilinogen 0.2 mg/dL (<2.0) Leukocyte Esterase Rfl Trace H MORTEZA/UL (Negative) Urine RBC 0-2 /hpf (0-2) Urine WBC 0-5 /hpf (0-3) Ur Squamous Epith Cells None seen /hpf (Few) Urine Bacteria None seen /hpf Urine Casts 0-2 RPR Non-reactive (NonReactive) HIV 1&2 Ab/P24 Ag 4thGn Negative (Negative) Blood Type O Positive Antibody Screen Negative Patient hx anesthesia problems: none Family hx anesthesia problems: none Results Review: All pre-operative results and documents have been reviewed as part of the pre-operative evaluation. [facility] Social History Social History Smoking status: Former smoker Tobacco type: e-cigarettes/vaping Second hand tobacco smoke exposure: No Substance use: never Do You Feel Safe in your Home?: Yes Lack of Transportation: No Lack of Food: Never True Current Housing: I Have Housing Concerned About Future Housing: No Difficulty Paying Gas/Electric Bills: No Difficulty Paying for Meds: No Currently Unemployed: No Education: High School Diploma/GED Difficulty w/ Childcare or Family Care: No Spiritual care concerns: No Exam Day of Procedure 03/07/24 12:42 Patient weight: normal Heart: regular rate and rhythm Lungs: clear to auscultation Airway: Mallampati scale class II Neurological: alert and oriented
--- NOTE | 2024-03-07 13:16 | PM.OBPNLAB ---
Pain Control Date/time seen: 03/07/24 13:[address] Feels occasional contractions AVSS NST reactive TOCO: irregular contractions Cervix 4-5/80/-1. Vertex. A: labor. P: Stop magnesium. Continue ampicillin. Anticipate .
[2024-03-07] MEDS: LORATADINE 10 MG TABLET PO (18:37)
[2024-03-08] VITALS (76 sets, daily range): BP systolic 97–124; BP diastolic 44–72; PULSE 69–153; RESP 12–16; TEMP 36.6–37.2; O2SAT 84–100
[2024-03-08] MEDS: AMPICILLIN 1 GM/NS 50 ML 1 GM/50 ML BAG IVPB ×2 (00:29→04:48)
--- NOTE | 2024-03-08 05:19 | PM.OBPRVD ---
OB - Vaginal Delivery Note Procedure Delivery date: 03/08/24 Events: Other (1) IUP at 35 5/7 weeks; 2) labor) Intrapartal Events: Placental Abruption Induction method: None Delivery monitor: External FHT and External Uterine Route of delivery: Laceration Description: Periurethral Specimen: Yes (Cord blood, placenta) Quantitative Blood Loss (ml): 250 Anesthesia type: Epidural Disposition: PACU Complications: None Narrative: 23 y/o at 35 5/7 weeks gestation who presented to the hospital with contractions at 35 4/7 weeks. She was treated with IV fluids and nifedipine, but contractions persisted and her cervix changed. She was given magnesium sulfate and betamethasone. However, her cervix continued to dilate and labor was diagnosed. Magnesium was stopped and ampicillin was started for unknown GBS status in the . She received an epidural. A second dose of betamethasone was given 12 hours after the first. Her cervix dilated completely and she was noted to have some vaginal bleeding. Amniotomy was performed with return of clear fluid. She pushed with good effort and delivered the infant's head to the perineum, followed by the body. The nose and mouth were bulb suctioned. After a delay, the cord was clamped and cut. The infant was handed off the field. Cord blood was collected. The placenta delivered spontaneously, accompanied by a blood clot, but was otherwise grossly normal in appearance. The usual 3 vessel cord was noted. Shallow bilateral periurethral lacerations were noted bilaterally. These were not bleeding and not repaired. Needle and instrument counts were correct. The patient was taken to recovery room in stable condition. The went to the nursery in stable condition. I was present and scrubbed for the entire delivery. [place] Baby Date of : 03/08/24 Time of : 05:08 Gestational Age by Date: 35 Infant gender: Female Weight (pounds): 5 Weight (ounces): 12 presentation: vertex position: Left Occiput Anterior Placenta delivery description: Spontaneous Cord Vessel Description: 3 Vessels and Delayed Cord Clamping score one minute: 9 score five minutes: 9
--- NOTE | 2024-03-08 05:26 | PM.OBDSVD ---
DS: Admitting Diagnosis Discharge Date 03/10/2024 <Ralph Vences MD - Last Filed: 03/10/24 05:58> Admitting Diagnosis IUP at 35 4/7 weeks labor <Keo Alaniz MD - Last Filed: 03/08/24 05:29> DS: Discharge Diagnosis Discharge Diagnosis (1) delivery, delivered: Code(s): O60.10X0 - labor with delivery, unspecified trimester, not applicable or unspecified <Keo Alaniz MD - Last Filed: 03/08/24 05:29> Status: Acute <Keo Alaniz MD - Last Filed: 03/08/24 05:29> OB - DS: Summary OB Procedures : None <Keo Alaniz MD - Last Filed: 03/08/24 05:29> OB Procedures Intrapartum: Spontaneous Vag Delivery and GBS prophylaxis <Keo Alaniz MD - Last Filed: 03/08/24 05:29> OB Procedures: : None <Keo Alaniz MD - Last Filed: 03/08/24 05:29> Peripartum Data Laceration Description: Periurethral <Keo Alaniz MD - Last Filed: 03/08/24 05:29> Time Spent with Patient Time attestation: Total time spent providing and/or coordinating discharge services: <Keo Alaniz MD - Last Filed: 03/08/24 05:29> DS: Data Data Completed and Pending Labs on day of discharge: Labs from last 24 hours 03/07/24 04:28 HIV 1&2 Ab/P24 Ag 4thGn Negative Antibody Screen Negative <Keo Alaniz MD - Last Filed: 03/08/24 05:29> Discharge Plan Discharge Attending physician on discharge: Ralph Barber <Keo Alaniz MD - Last Filed: 03/08/24 05:29> Ralph Barber <Ralph Vences MD - Last Filed: 03/10/24 05:58> Discharging Clinician: Ralph Barber <Keo Alaniz MD - Last Filed: 03/08/24 05:29> Ralph Barber <Ralph Vences MD - Last Filed: 03/10/24 05:58> Patient Disposition: Home, Self-Care <Keo Alaniz MD - Last Filed: 03/08/24 05:29> Activity: pelvic rest <Keo Alaniz MD - Last Filed: 03/08/24 05:29> pelvic rest <Ralph Vences MD - Last Filed: 03/10/24 05:58> Diet: regular <Keo Alaniz MD - Last Filed: 03/08/24 05:29> regular <Ralph Vences MD - Last Filed: 03/10/24 05:58> Discharge Instructions: Call or return if temperature above 100.4? F, increased abdominal pain, increased vaginal bleeding or any new problems. <Keo Alaniz MD - Last Filed: 03/08/24 05:29> Patient Language: [place]ian <Keo Alaniz MD - Last Filed: 03/08/24 05:29> Stand Alone Forms: General Discharge Information <Keo Alaniz MD - Last Filed: 03/08/24 05:29> Follow-up/Referrals: Ralph Barber MD [Physician] - 6 Weeks <Keo Alaniz MD - Last Filed: 03/08/24 05:29> Discharge Medications: New ibuprofen 600 mg tablet 600 mg PO Q6H PRN (Reason: cramps) Qty: 30 0RF Classic 28 mg iron- 800 mcg tablet 1 tablet PO DAILY Qty: 100 3RF Continued No Home Medications <Keo Alaniz MD - Last Filed: 03/08/24 05:29> Date of admission: 03/07/24 04:20 <Keo Alaniz MD - Last Filed: 03/08/24 05:29> Primary Care Provider: UNKNOWN,DOCTOR <Keo Alaniz MD - Last Filed: 03/08/24 05:29> Admitting Provider: Ralph Barber <Keo Alaniz MD - Last Filed: 03/08/24 05:29> Attending physician on admission: Ralph Barber <Keo Alaniz MD - Last Filed: 03/08/24 05:29> Condition: Stable <Keo Alaniz MD - Last Filed: 03/08/24 05:29>
[2024-03-08] MEDS: OXYTOCIN 30 UNITS/NS 500 ML 30 UNITS/500 ML BAG 125 UNITS IV CONT (06:00)
[2024-03-08] MEDS: OXYTOCIN 30 UNITS/NS 500 ML 30 UNITS/500 ML BAG 999 UNITS IV CONT (06:19)
[2024-03-08] MEDS: IBUPROFEN 600 MG TABLET PO ×2 (07:17→20:10)
[2024-03-08] MEDS: WITCH HAZEL 40 PADS 1 PAD TOPICAL (08:02)
[2024-03-08] MEDS: LANOLIN (LANSINOH) 7.5 GM CREAM 1 APPLIC TOPICAL (08:02)
[2024-03-08] MEDS: MULTIVIT/MIN/PREN/FOL AC/IRON TABLET 1 TAB PO (08:02)
[2024-03-08] MEDS: BENZOCAINE 20% AER SPR (*SP) 56 GM CAN 1 SPRAY TOPICAL (08:03)
[2024-03-08] MEDS: DOCUSATE SODIUM 100 MG CAPSULE PO (08:03)
--- NOTE | 2024-03-08 08:28 | OBPPTRN ---
Patient transferred to post room #282 via wheelchair. Support person present. Oriented to unit, room, information board, rooming in, admission packet and security measures. Patient verbalizes understanding.
--- NOTE | 2024-03-08 09:00 | PC.NURSE ---
Breast pump provided due to [ in level 2 and mom request]. Instructions given on cleaning, care, usage, that there should be no pain, pumping schedule for milk production, collection, and storage of human milk. Patient was assessed for correct placement, flange size 24mm (measured at 20mm), to pump for comfort and nipple stretching/stimulation for adequate milk production every 3 hours (8 times in 24 hours) 1-2 times at night. Parents are encouraged to record the pumping schedule on the feeding sheet.?Mother voiced understanding of the education shared along with mom/baby guide and pumping primer handout. Reported to the Primary RN.
--- NOTE | 2024-03-08 12:15 | PC.NURSE ---
Patient ambulatory to the first floor nursery to feed baby
[2024-03-08] MEDS: POLYSACCHARIDE IRON COMPLEX 150 MG CAPSULE PO (20:11)
[2024-03-08] MEDS: ACETAMINOPHEN 325 MG TABLET 650 MG PO (20:11)
[2024-03-09 04:59] LABS: Hematocrit 27.4 % (37.0-47.0); Hemoglobin 8.1 g/dL (12.0-15.0)
--- NOTE | 2024-03-09 05:59 | P.PNOB_ITS ---
OB - PN: Subj Subjective Date/time seen: 03/09/24 05:59 Patient comments: no complaints, pain well controlled and tolerating diet [place] baby status: other (level 2) [place] feeding status: exclusively breast feeding OB - PN: Obj Data Labs 03/09/24 04:26 Labs: Laboratory Results - last 24 hr 03/09/24 04:26 Hgb 8.1 L Hct 27.4 L OB - PN A/P Assessment and Plan (1) delivery, delivered: Code(s): O60.10X0 - labor with delivery, unspecified trimester, not applicable or unspecified Status: Acute (2) labor: Code(s): O60.00 - labor without delivery, unspecified trimester Status: Acute (3) Anemia: Code(s): D64.9 - Anemia, unspecified Status: Acute Plan begin iron replacement Time Spent With Patient Time: Total time spent is greater than 50% in coordination of care (as documented) at patient's floor/unit and/or counseling patient: Exam 2 Const: General: cooperative, healthy appearing and comfortable O rientation/consciousness: patient oriented x3 Other: Well-developed, well-nourished female in no acute distress. HENMT: Head: normal to inspection Neck: Thyroid: thyroid normal Lymphatic: no lymphadenopathy noted (in neck, axilla or inguinal nodes) Resp: Effort & Inspection: normal respiratory effort Auscultation: clear to auscultation bilaterally Cardio: Rate: regular rate Rhythm: regular rhythm Heart sounds: S1 normal heart sound present and S2 normal heart sound present GI: Inspection: normal to inspection (fundus firm) Other: ABD: Soft, nontender, nondistended, gravid. NST reactive. TOCO: contractions every 3-10 min. No guarding or rebound tenderness. No hepatosplenomegaly. : General: Yes no CVA tenderness Other: Cervix 4-5 cm / 80 per RN. Back/Spine/Pelvis: Back: no CVA tenderness Skin: General skin exam: normal color and no rashes or lesions noted Neuro: General: patient oriented x3 Extrem: Other: Extremities: nontender with no edema Psych: Mental Status: mental status grossly normal Affect: normal affect
[2024-03-09] MEDS: MULTIVIT/MIN/PREN/FOL AC/IRON TABLET 1 TAB PO (07:41)
[2024-03-09] MEDS: DOCUSATE SODIUM 100 MG CAPSULE PO ×2 (07:41→17:14)
[2024-03-09] MEDS: POLYSACCHARIDE IRON COMPLEX 150 MG CAPSULE PO ×2 (07:41→17:14)
[2024-03-09] MEDS: IBUPROFEN 600 MG TABLET PO (07:41)
[2024-03-09 09:05] VITALS: BP 115/70; PULSE 84; RESP 16; TEMP 36.7; O2SAT 97
--- NOTE | 2024-03-09 14:20 | PC.NURSE ---
Mother verbalizes she is able to independently latch with appropriate positioning and alignment. She denies any nipple discomfort and is pumping after and supplementing with pumped milk. Baby just came up from the level 2 nursery, but mom had been going down to breastfeed regularly. Mother declines any additional assistance or education at this time. Mother is encouraged to call for assistance if her infant doesn?t latch, pain with latching, questions or concerns. Mother voiced understanding of information shared along with the mom/baby guide for an additional resource. Reported to the Primary RN.
--- NOTE | 2024-03-09 14:39 | WPDANLDPN2 ---
Anes-Prog Note L&D Date/Time: 03/09/24 14:39 Comfortable throughout: labor and delivery Neuraxial method: epidural Epidural/Spinal procedure site: clean & non-tender Neuro status: Neuro function grossly intact. Cardiovascular status: normal Respiratory status: normal Airway patency: baseline Mental status: baseline Post-Op hydration status: normal Vital Signs: Last Vital Signs Temp 98.1 F 03/09/24 09:05 Pulse 84 03/09/24 09:05 Resp 16 03/09/24 09:05 BP 115/70 03/09/24 09:05 Pulse Ox 97 03/09/24 09:05 O2 Del Method Room Air 03/09/24 07:45 Pain score (VAS): 0 I/O: Intake & Output 03/08/24 03/09/24 03/09/24 23:59 07:59 15:59 Intake Total 175 1000 Balance 175 1000 Post-procedural complaints: none Patient feedback: Patient satisfied with anesthetic care.
[2024-03-09 18:50] VITALS: BP 117/72; PULSE 74; RESP 14; TEMP 36.9; O2SAT 99
--- NOTE | 2024-03-10 05:56 | P.PNOB_ITS ---
OB - PN: Subj Subjective Date/time seen: 03/10/24 05:56 Patient comments: no complaints and pain well controlled OB - PN: Obj Data Labs 03/09/24 04:26 OB - PN A/P Assessment and Plan (1) labor: Code(s): O60.00 - labor without delivery, unspecified trimester Status: Acute (2) delivery, delivered: Code(s): O60.10X0 - labor with delivery, unspecified trimester, not applicable or unspecified Status: Acute Plan Comments: no care bed Time Spent With Patient Time: Total time spent is greater than 50% in coordination of care (as documented) at patient's floor/unit and/or counseling patient: Review of Systems 2 Review of Systems: All systems reviewed & are unremarkable except as noted in HPI and below Exam 2 Const: General: cooperative, healthy appearing and comfortable Nutritional Appearance: average body habitus Orientation/consciousness: oriented to person, oriented to place and oriented to time HENMT: Head: normal to inspection Resp: Effort & Inspection: normal respiratory effort Cardio: Rate: regular rate Rhythm: regular rhythm Heart sounds: S1 normal heart sound present and S2 normal heart sound present GI: Inspection: normal to inspection
[2024-03-10 09:20] VITALS: BP 115/74; PULSE 97; RESP 16; TEMP 37.3; O2SAT 99
[2024-03-10] MEDS: MULTIVIT/MIN/PREN/FOL AC/IRON TABLET 1 TAB PO (09:23)
[2024-03-10] MEDS: POLYSACCHARIDE IRON COMPLEX 150 MG CAPSULE PO (09:23)
[2024-03-10] MEDS: DOCUSATE SODIUM 100 MG CAPSULE PO (09:23)
[2024-03-10] MEDS: IBUPROFEN 600 MG TABLET PO (09:24)
--- NOTE | 2024-03-10 16:41 | PC.NURSE ---
9255. Consulted with patient to assess needs related to . Discussed with mother her successes, concerns and any questions she has. We reviewed moms feeding plan and expectations so far. Mom reports she is continuing to pump and bottle feed infant and feels confident in feeding baby and has no questions at this time. Mom reports she has a good pump at home to use and her correct flange size. is down 5% in weight loss and her last tcb was 11.8 at 58 hours. Mom is encouraged to call for assistance or questions. She declined the need for a [facility] referral at this time. Reported to the Primary RN.
[2024-03-12 08:41] VITALS: BP 107/74; PULSE 95; RESP 18; TEMP 36.6; O2SAT 100
== END 2024-03-10 18:00 | disposition home or self-care (01) | DRG 560 ==
LOC: ANHLDR 03-08 05:27 → ANHOB2 03-08 08:34
PROVIDERS: Admitting Provider Obstetrics & Gynecology; Visit Provider Obstetrics & Gynecology
DX: O42.013 Preterm premature rupture of membranes, onset of labor within 24 hours of rupture, third trimester (principal); Z37.0 Single live birth; Z3A.35 35 weeks gestation of pregnancy; O45.93 Premature separation of placenta, unspecified, third trimester; O60.14X0 Preterm labor third trimester with preterm delivery third trimester, not applicable or unspecified; O71.82 Other specified trauma to perineum and vulva; O99.02 Anemia complicating childbirth; D64.9 Anemia, unspecified
CPT/HCPCS: 36415; 81001; 85014; 85018; 85025; 86592; 86703; 86850; 86900; 86901; 88307; A9270; G0432; J0290; J0702; J2590; J2795; J3010; J3475; J7120